=== PATIENT | male | born 1990 | race Caucasian/White ===

== ENCOUNTER 2021-01-07 21:01 | Emergency (ER) | payer SELFPAY ==
[~2021-01-07] VITALS: Ht 183 cm; Wt 91.0 kg
[2021-01-07] MEDS ORDERED: EPINEPHrine INJECTION 1 MG/ML AMP ONE (21:02)
[2021-01-07] MEDS ORDERED: FAMOTIDINE 20MG/2ML IV (PEPCID) ONE (21:02)
--- NOTE | 2021-01-07 21:13 | ED General ---
General Chief Complaint: Allergic Reaction Stated Complaint: ALLERGIC REACTION Source of Information: Patient Exam Limitations: No Limitations History of Present Illness Date Seen by Provider: Jan 07, 2021 Time Seen by Provider: 21:04 Initial Comments Patient presents ER by EMS with chief complaint that he was working on his deck and he thinks he has allergies to wood products and he was covered in hives. His gave him a shot of epinephrine but it was like 5 years old so he does not think it helped very much. He passed out struck the back of his head briefly and when EMS arrived he said he was wheezy so they gave him a DuoNeb. He has a history of asthma. This improved his breathing. To give him another 125 mg Solu-Medrol and 0.4 mg epinephrine IM and started a liter of fluids. They were not able to get a blood pressure on him initially until they arrived in the ambulance bay and it was about 105 systolic. Allergies and Home Medications Allergies Coded Allergies: No Known Drug Allergies (Unverified , 01/07/21) Home Medications Albuterol Sulfate 2.5 Mg/3 Ml Vial.neb, 2.5 MG INH Q4H PRN for WHEEZING Prescribed by: JOANNE LAZAR on 01/07/21 2301 Epinephrine 0.3 Mg/0.3 Ml Auto.injct, 0.3 MG IJ Q15M PRN for anaphylaxis Prescribed by: JOANNE LAZAR on 01/07/21 2146 Patient Home Medication List Home Medication List Reviewed: Yes Review of Systems Review of Systems Constitutional: No chills, No diaphoresis, No fever EENTM: No ear discharge, No ear pain Respiratory: No cough, No short of breath Cardiovascular: No chest pain, No edema Gastrointestinal: No abdominal pain, No nausea, No vomiting Genitourinary: No discharge, No dysuria Musculoskeletal: No back pain, No joint pain Skin: see HPI, change in color All Other Systems Reviewed Negative Unless Noted: Yes Past [id number]-Vfkmai Hx Patient Social History Alcohol Use: Denies Use Smoking Status: Never a Smoker Physical Exam Vital Signs Vital Signs - First Documented 01/07/21 21:03 Temp 35.0 Pulse 92 Resp 22 B/P (MAP) 125/78 (94) Pulse Ox 96 O2 Delivery Room Air Capillary Refill : Height, Weight, BMI Height: '" Weight: lbs. oz. kg; BMI Method: General Appearance: WD/WN, Anxious, Mild Distress Eyes: Bilateral Eye Normal Inspection, Bilateral Eye PERRL, Bilateral Eye EOMI HEENT: PERRL/EOMI, TMs Normal, Pharynx Normal, Moist Mucous Membranes Neck: Full Range of Motion, Normal Inspection Respiratory: Lungs Clear, Normal Breath Sounds, No Accessory Muscle Use (100% on room air), No Respiratory Distress Cardiovascular: Regular Rate, Rhythm, No Edema, Normal Peripheral Pulses Extremity: Normal Capillary Refill, Normal Inspection Neurologic/Psychiatric: Alert, Oriented x3 Skin: Other (Hives from his hairline to his toes; blanchable erythematous wheals) Progress/Results/Core Measures Suspected Sepsis SIRS Temperature: Pulse: Respiratory Rate: Blood Pressure / Mean: Results/Orders My Orders Orders - JOANNE LAZAR Epinephrine 1 Mg Injection (Adrenalin I (01/07/21 21:02) Famotidine Injection (Pepcid Injection) (01/07/21 21:02) Loratadine Tablet (Claritin Tablet) (01/07/21 21:15) Famotidine Injection (Pepcid Injection) (01/07/21 21:15) Epinephrine 1 Mg Injection (Adrenalin I (01/07/21 21:15) Orthostatic Vital Signs (Adult (01/07/21 21:47) Medications Given in ED Current Medications Medications Dose Ordered Sig/Katheryn Route Start Time Stop Time Status Last Admin Dose Admin Epinephrine HCl 0.3 mg ONCE ONCE IM 01/07/21 21:15 01/07/21 21:16 DC 01/07/21 21:19 0.3 MG Famotidine 20 mg ONCE ONCE IVP 01/07/21 21:15 01/07/21 21:16 DC 01/07/21 21:20 20 MG Loratadine 10 mg ONCE ONCE PO 01/07/21 21:15 01/07/21 21:16 DC 01/07/21 21:26 10 MG Vital Signs/I&O 01/07/21 01/07/21 21:03 21:49 Temp 35.0 Pulse 92 78 83 93 Resp 22 B/P (MAP) 125/78 (94) 162/76 (104) 160/76 (104) 151/72 (98) Pulse Ox 96 O2 Delivery Room Air Capillary Refill : Progress Note #1: Time: 21:13 Progress Note Its been about half an hour since he received his dose of epinephrine from EMS so we gave another dose as well as 20 mg IV famotidine continue the liter of fluids and will give him some loratadine. Progress Note #2: Time: 21:44 Progress Note Although his whole body is still covered in hives they have lightened considerably in appearance and he is no longer in any kind of respiratory distress. He is much more comfortable. His is here. We explained to them we like to observe him until 1 in the morning and then will let him go. He is okay with this plan. We discussed follow-up treatment and will send a prescription for epinephrine to the pharmacy. Orthostatics are acceptable as documented. Progress Note #3: Time: 23:00 Progress Note The patient is doing well. His hives are lightening and he is not having any itching. We provide him with a spacer. He says he has an albuterol inhaler as well as a nebulizer but does not have any albuterol for the nebulizer so we will provide him with a prescription for that. We will also provide him a Advair Diskus inhaler and ProAir inhaler using the [facility] prescription program since he states that his asthma is better contro lled when he is on a long-acting inhaler he is just having difficulty affording it. This would be an appropriate use of the program to help keep him out of the ER in hospital. The patient is doing well and eager to go home. He has his with him who will keep an eye on him. We are all in agreement with this plan. Departure Impression Primary Impression: Urticaria Additional Impressions: Asthma attack Qualified Codes: J45.41 - Moderate persistent asthma with (acute) exacerbation Anaphylaxis Qualified Codes: T78.2XXA - Anaphylactic shock, unspecified, initial encounter Disposition: 01 HOME, SELF-CARE Condition: Stable Departure-Patient Inst. Decision time for Depature: 01:00 Referrals: KASSI CHRIS MD Patient Instructions: Asthma, Adult ED, Epinephrine Autoinjectors, Anaphylaxis (DC) Add. Discharge Instructions: If you start to have worsening shortness of breath tongue swelling or difficulty breathing you may take another injection of epinephrine. 1 injection every 10 to [address] to the ER. If your hives worsen take Claritin or Zyrtec 10 mg once or twice a day. Benadryl 1 to 2 tablets every 6 hours as necessary for worsening hives or itching. Famotidine/Pepcid 20 mg twice a day until your hives go away. Use your inhaler for asthma as directed. Plan to follow-up with Dr. Chris in the next 1 to 2 weeks for recheck. You may go to [facility] to [facility] picking supervisor your Advair and ProAir inhalers. Advair 1 puff daily. Proair 2 puffs through the spacer provided every 4 hours as necessary for wheezing, shortness of breath or intractable coughing. All discharge instructions reviewed with patient and/or family. Voiced understanding. Scripts Fluticasone/Salmeterol (Advair 100-50 Diskus) 1 Each Blst.w.dev 1 EACH IH DAILY for 90 Days, #3 EA 0 Refills Prov: JOANNE LAZAR 01/07/21 Albuterol Sulfate (PROAIR HFA) 1 Puff Puff 2 PUFF IH Q4H PRN for WHEEZING for 90 Days, #4 EA 0 Refills 1 PUFF = 90 MCG Prov: JOANNE LAZAR 01/07/21 Albuterol Sulfate (Albuterol Sulfate) 2.5 Mg/3 Ml Vial.neb 2.5 MG INH Q4H PRN for WHEEZING, #50 EA 1 Refill Prov: JOANNE LAZAR 01/07/21 Epinephrine (Epipen 2-Ten) 0.3 Mg/0.3 Ml Auto.injct 0.3 MG IJ Q15M PRN for anaphylaxis, #1 EA 0 Refills Prov: JOANNE LAZAR 01/07/21 Work/School Note: Work Release Form Date Seen in the Emergency Department: Jan 07, 2021 Return to Work: Jan 09, 2021 Restrictions: No Restrictions Copy Copies To 1: KASSI CHRIS MD, TITUS J Jan 07, 2021 21:13
[2021-01-07] MEDS ORDERED: LORATADINE (CLARITIN) 10 MG TAB PO ONE (21:15)
[2021-01-07] MEDS ORDERED: EPINEPHrine INJECTION 1 MG/ML AMP IM ONE (21:15)
[2021-01-07] MEDS ORDERED: FAMOTIDINE 20MG/2ML IV (PEPCID) IVP ONE (21:15)
[2021-01-07] MEDS ORDERED: EPIN0.3P3 IJ (21:46)
[2021-01-07 21:49] VITALS: BP_SYST 151; BP_SYST 160; BP_SYST 162; BP_DIAS 72; BP_DIAS 76
[2021-01-07] MEDS ORDERED: ALBU2.5V4 INH (23:01)
[2021-01-07] MEDS ORDERED: RT-ALBUINH IH (23:18)
[2021-01-07] MEDS ORDERED: FLUT1DIS28 IH (23:18)
[2021-01-07 23:21] VITALS: BP 132/80
== END 2021-01-07 23:27 | disposition home or self-care (01) ==
LOC: EDUNIT# 21:01 → ER 21:03
DX: L50.9 Urticaria, unspecified (principal); J45.909 Unspecified asthma, uncomplicated; T78.2XXA Anaphylactic shock, unspecified, initial encounter

== ENCOUNTER → 2021-05-31 | Outpatient (CLI) | payer BC ==
[~2021-05-31] MED LIST: ALBU2.5V4 INH; EPIN0.3P3 IJ; FLUT1DIS28 IH; RT-ALBUINH IH
[2021-05-31 12:02] LABS: SEMEN VOLUME 3.8 ML (1.5-5.0)
== END ==
LOC: LAB 09:49
DX: N46.9 Male infertility, unspecified (principal)
CPT/HCPCS: 89320